=== PATIENT | female | born 1955 | race Two or more races ===

== ENCOUNTER 2020-12-17 05:45 | Day surgery (SDC) | payer OTHER ==
[~2020-12-17 05:45] MED LIST: ATOR PO; GABAPEN PO; INSULIN 70/30; LOSART PO
== END 2020-12-17 10:35 | disposition home or self-care (01) ==
LOC: CIR.AMB 05:45
PROVIDERS: ATTEND Surgery Surgery of the Hand
DX: M65.842 Other synovitis and tenosynovitis, left hand (principal); Z20.822 Contact with and (suspected) exposure to COVID-19